=== PATIENT | female | born 1945 | race Caucasian/White ===

== ENCOUNTER → 2017-05-07 | Outpatient (CLI) | payer MEDICARE, OTHER | LOC: MAMO 04-13 09:40 | DX: Z12.31 Encounter for screening mammogram for malignant neoplasm of breast (principal) | CPT/HCPCS: G0202 ==

== ENCOUNTER → 2022-07-18 | Outpatient (CLI) | payer MEDICARE, OTHER ==
[~2022-07-18] MED LIST: AMLODIPINE BESYL5 MG PO; ASPIR 8181 MG PO; ATORVASTATIN CA20 MG PO; CEFDINIR300 MG PO; CYANOCOBAL1000 MCG/1 INJ; DILTIAZEM 24HR180 M1 PO; FARXIGA10 MG PO; GLIMEPIRIDE4 MG PO; GLUCOPHAGE500 MG PO; INVOKANA300 MG PO; ISOSORBIDE MONO30 MG PO; K-DUR TAB 20 M20 MEQ PO; LASIX40 MG PO; LASIX80 MG PO; LEVOTHYROXINE75 MCG PO; LISINOPRIL40 MG PO; MELOXICAM7.5 MG PO; METFORMIN HCL1000 MG PO; METOLAZONE5 MG PO; METOPROLOL TART25 MG PO; NITROSTAT0.4 MG SL; NORCO 10-325 T1 EACH PO; NORCO 5-325 TA1 EACH PO; NORTRIPTYLINE H10 MG PO; PLETAL 100 MG100 MG PO; SUPER CALCIUM600 MG PO; TRADJENTA5 MG PO; TRICOR145 MG PO; VALACYCLOVIR500 MG PO; VITAMIN D32000 UNI1 PO; ZOLOFT50 MG PO
[2022-07-18 10:46] LABS: BUN/CREATININE RATIO 23 (0-10)
== END ==
LOC: US 04-17 15:30
PROVIDERS: Internal Medicine Nephrology
DX: N18.9 Chronic kidney disease, unspecified (principal)
CPT/HCPCS: 36415; 80053